=== PATIENT | female | born 1985 | race Caucasian/White ===

== ENCOUNTER 2016-08-26 01:03 | Emergency (ER) | payer MEDICAID ==
[~2016-08-26] VITALS: Ht 165.1 cm; Wt 66.4 kg
[2016-08-26 01:04] VITALS: BP 134/85
[2016-08-26] MEDS ORDERED: LIDOCAINE 1%, 20ML ONE (01:29)
[2016-08-26] MEDS ORDERED: LIDOCAINE 1%, 20ML INFIL ONE (01:30)
== END 2016-08-26 02:54 | disposition home or self-care (01) ==
LOC: ED 02:24
DX: S61.214A Laceration without foreign body of right ring finger without damage to nail, initial encounter (principal); S60.221A Contusion of right hand, initial encounter; X58.XXXA Exposure to other specified factors, initial encounter; Y93.89 Activity, other specified; Y92.89 Other specified places as the place of occurrence of the external cause; Y99.8 Other external cause status
CPT/HCPCS: 12001

== ENCOUNTER 2017-08-31 09:50 | Emergency (ER) | payer SELFPAY ==
[~2017-08-31] VITALS: Ht 165.1 cm; Wt 69.0 kg
[2017-08-31 09:52] VITALS: BP 124/80
[2017-08-31] MEDS ORDERED: PROPARACAINE OPHTH 0.5%, 15ML ONE (10:24)
[2017-08-31] MEDS ORDERED: PROPARACAINE OPHTH 0.5%, 15ML LEFTEYE ONE (10:30)
== END 2017-08-31 10:54 | disposition home or self-care (01) ==
LOC: ED 10:53
DX: H10.32 Unspecified acute conjunctivitis, left eye (principal)
CPT/HCPCS: 99283